=== PATIENT | female | born 1985 | race Two or more races ===

== ENCOUNTER 2025-04-13 13:41 | Outpatient (AMB) | payer MEDICAID, SELFPAY ==
--- NOTE | 2025-04-13 13:45 | A.OFFVIS_ITS ---
Vital Signs 04/13/25 14:13 Height 5 ft 1.5 in Weight 180 lb BMI 33.5 BP 130/80 Blood Pressure Location Rt brachial Position Sitting Pulse 94 Pulse Source Pulse Oximeter Pulse Oximetry (%) 97 Oxygen Delivery Method Room Air Intake Visit Reasons: arthralgia Intake Note: patient presents today for arthralgia. Accompanied by: Daughter Allergies No Known Allergies Allergy (Verified 04/13/25 14:14) HPI HPI arthralgia: Details: Swedish speaking. Daughter interprets. She completed PT for management of shoulder and neck pain. She is compliant with exercises daily. She has had increased pain involving her upper back and neck. Daughter massages shoulders. She takes tyelnol 1000mg PRN pain. [facility] Medical History (Updated 04/13/25 @ 15:48 by Rodrigo Willett MD) Asthma Hypertension Epilepsy Depression Rotator cuff tendonitis Lumbar spondylolysis longterm (current) use of non-steroidal anti-inflammatories (nsaid) Fibromyalgia Chondromalacia of knee Carpal tunnel syndrome, bilateral Arthralgia Family History (Updated 04/13/25 @ 14:29 by Sylvia Eckert CMA) Mother Heart disease Osteoporosis Father Heart disease Social History (Updated 04/13/25 @ 14:29 by Sylvia Eckert CMA) Household Members: Spouse and Children Alcohol intake: never Patient Tobacco Use Status: Never used Tobacco Physical Exam Vital Signs: Last Vital Signs Pulse 94 04/13/25 14:13 BP 130/80 04/13/25 14:13 Pulse Ox 97 04/13/25 14:13 Oxygen Delivery Method Room Air 04/13/25 14:13 BMI result Body Mass Index 33.5 Const Other: General: Comfortable Skin: No lesions seen MSK: Tender to palpate bilateral shoulders, trapezius, cervical paraspinal muscles. She has tenderness of mid thoracic spinous process to lower thoracic spinous process. She also has tenderness of paraspinal muscles of thoracic spine. Normal range of motion of cervical spinous process. Shoulder abduction 90 degrees actively with normal internal rotation. Full external rotation of bilateral shoulders is limited. Bilateral Shoulder abduction to 160 degrees with pain passively. Assessment & Plan Assessment & Plan (1) Myofascial neck pain: Comment: She completed PT June 2024. Code(s): M54.2 - Cervicalgia Category: Medical Plan: Continue PT exercises daily Apply heat to back twice a day Start cyclobenzaprine 5 mg q.h.s. PRN. We discussed side effects and benefits. Continue Tylenol 1000 mg prn pain Try lidocaine patch applied to affected area daily Return to clinic in 3 months Medications: New lidocaine 5% leave on most painful area for up to 12 hrs 1 patch topical DAILY 30 ea 2RF cyclobenzaprine 5 mg PO BEDTIME PRN 30 tabs 1RF muscle pain Coding Level of Care Code Est Pt Level 3 (58620) Complex EM visit Add On G2211 Diagnoses Myofascial neck pain M54.2
[2025-04-13 14:13] VITALS: BP 130/80; PULSE 94; O2SAT 97; BMI 33.5
--- OUTSIDE RECORDS SUMMARY | 2025-04-13 14:53 | XMS_ITS | Clinical Summary ---
Author Organization [facility] Address [address] [place] [address] Care Team Providers Care Earth Science Faculty Member Name Role Phone Unavailable Primary Care Provider Unavailabl e Encounters Date Type Department Care Team Description 04/13/2025 Population Health Risk Score [facility] (C3) Department [address] [address] [place] [address] Provider, Population Health Generic from Last 3 Months Social History Tobacco Use Types Packs/Day Years Used Date Smoking Tobacco: Never Assessed Comments Unknown Sex and Gender Information Value Date Recorded Sex Assigned at Not on file Legal Sex Female 9:31 PM EDT Gender Identity Not on file Sexual Orientation Not on file Plan of Treatment Health Maintenance Due Date Last Done Comments Depression Screening 1983 HIV Screening 1983 SDOH Screening 1983 Disability Screening 1983 Alcohol/Substance Use Screening 1995 Tobacco Screening 1995 Family Planning (PISQ) 1998 HPV Vaccines (1 - 3-dose series) 1998 Hepatitis C Screening 2001 DTaP/Tdap/Td Vaccines (1 - Tdap) 2002 Hepatitis B Vaccines (1 of 3 - 19+ 3-dose series) 2002 Pap Smear 2004 Cervical Cancer Screening 2013 HPV/Cotest 2013 Mammogram 2023 COVID-19 Vaccine ( - 2023-2 5 season) 2024 Influenza Vaccine (#1) 2025 Zoster Vaccines (1 of 2) 2033 RSV Patients and Pa tients Aged 60 years or older (1 - 1-dose 75+ series) 2058 HIB Vaccines Aged Out No longer eligi ble based on patient's age to complete this topic Hepatitis A Vaccines Aged Out No long er eligible based on patient's age to complete this topic IPV Vaccines Aged Out No longer eligi ble based on patient's age to complete this topic Meningococcal B Vaccine Aged Out No l onger eligible based on patient's age to complete this topic Meningococcal Vaccine Aged Out No sean marium eligible based on patient's age to complete this topic Pneumococcal Vaccine: Pediat rics (0 to 5 Years) and At-Risk Patients (6 to 49) Years Aged Out No longer eligible b ased on patient's age to complete this topic RSV under 20 months Aged Out No longe r eligible based on patient's age to complete this topic Rotavirus Vaccines Aged Out No longer eligible based on patient's age to complete this topic
== END 2025-04-13 15:04 | disposition home or self-care (01) ==
PROVIDERS: Visit Provider Internal Medicine Rheumatology
DX: M54.2 Cervicalgia (principal)
CPT/HCPCS: 99213

== ENCOUNTER → 2025-04-13 13:41 | Outpatient (BNVA) | payer MEDICAID, SELFPAY | PROVIDERS: Visit Provider Internal Medicine Rheumatology | DX: M54.2 Cervicalgia (principal) | CPT/HCPCS: 99212 ==

== ENCOUNTER 2025-07-22 14:10 | Outpatient (AMB) | payer MEDICAID, SELFPAY ==
[2025-07-22 14:23] VITALS: BP 110/80; PULSE 67; O2SAT 98; BMI 32.7
--- NOTE | 2025-07-22 14:23 | MHC.OFFVIS ---
Vital Signs 07/22/25 14:23 Height 5 ft 1.5 in Weight 175 lb 11.335 oz BMI 32.7 BP 110/80 Blood Pressure Location Rt brachial Position Sitting Pulse 67 Pulse Source Pulse Oximeter Pulse Oximetry (%) 98 Oxygen Delivery Method Room Air Intake Visit Reasons: 3 months Intake Note: patient presents today for arthralgia. Accompanied by: Self / Same As Patient Allergies No Known Allergies Allergy (Verified 07/22/25 14:29) HPI HPI 3 months: Details: Bengali speaking. Daughter interprets. Pain is still persistent in neck and right shoulder. She continues home exercise program from PT. She fell a month ago. She has been experiencing knee pain since the fall. She had an evaluation by PCP but did not receive any intervention. She has been taking Tylenol 2 tablets daily with some benefit. She uses lidocaine patch on her neck with relief. Her neck pain has improved since last visit. She was using cyclobenzaprine with benefit. Acute on chronic pain in lower back worse in the last 3 days. [facility] Medical History Asthma Hypertension Epilepsy Depression Rotator cuff tendonitis Lumbar spondylolysis [facility] (current) use of non-steroidal anti-inflammatories (nsaid) Fibromyalgia Chondromalacia of knee Carpal tunnel syndrome, bilateral Arthralgia Family History Mother Heart disease Osteoporosis Father Heart disease Social History Household Members: Spouse and Children Alcohol intake: never Patient Tobacco Use Status: Never used Tobacco Physical Exam Vital Signs: Last Vital Signs Pulse 67 07/22/25 14:23 BP 110/80 07/22/25 14:23 Pulse Ox 98 07/22/25 14:23 Oxygen Delivery Method Room Air 07/22/25 14:23 BMI result Body Mass Index 32.7 Const Other: General: Comfortable Skin: No lesions seen MSK: Tender to palpate bilateral shoulders, cervical paraspinal muscles and cervical spinous process. She has tenderness of lower lumbar paraspinal muscles. Normal range of motion of cervical spinous process. Right shoulder abduction 90 degrees actively with limited internal and external rotation. Left shoulder range of motion is full. Tender bilateral knees along joint line. No new effusion. Knee flexion is limited to 30 degrees right side and 45 degrees left side. Assessment & Plan Assessment & Plan (1) Chronic knee pain: Comment: Bilateral knee pain occurred after fall. Pain is uncontrolled limiting range of motion. Discussed conservative management. Code(s): M25.569 - Pain in unspecified knee; G89.29 - Other chronic pain Category: Medical Plan: Start NSAID meloxicam 15 mg daily. I have ordered labs for baseline prior to starting NSAID Continue to use Tylenol 1000 mg. Increased frequency to 1000 mg Q 8 hourly PRN pain Continue to use lidocaine patch as needed to affected area Apply ice to affected area daily X-ray bilateral knees ordered After x-ray results are reviewed, we will consider ordering physical therapy Return to clinic in 3-4 months (2) Chronic right shoulder pain: Code(s): M25.511 - Pain in right shoulder; G89.29 - Other chronic pain Category: Medical Plan: X-ray ordered Labs prior to starting NSAID ordered. Start meloxicam 15 mg daily After x-ray results are reviewed, I will consider physical therapy Continue to use Tylenol 1000 mg. She can increase frequency to Tylenol 1000 mg Q 8 hourly PRN pain Try lidocaine patch applied to affected area as needed Apply heat to affected area daily Return to clinic in 3-4 months Orders: Orders Alanine Aminotransferase 07/22/25 Z79.1 - intermediate manager (current) use of non-steroidal anti-inflammatories (NSAID) Aspartate Amino Transferase 07/22/25 Z79.1 - intermediate manager (current) use of non-steroidal anti-inflammatories (NSAID) Complete Blood Count Auto Diff 07/22/25 Z79.1 - intermediate manager (current) use of non-steroidal anti-inflammatories (NSAID) XR Knee Grey 3V 07/22/25 G89.29 - Other chronic pain, M25.569 - Pain in unspecified knee Creatinine 07/22/25 Z79.1 - intermediate manager (current) use of non-steroidal anti-inflammatories (NSAID) XR shoulder RT min 2V 07/22/25 G89.29 - Other chronic pain, M25.511 - Pain in right shoulder Medications: New meloxicam 15 mg PO DAILY 30 tabs 2RF Discontinued cyclobenzaprine Discontinued Reason: Doctor's Order 5 mg PO BEDTIME PRN 30 tabs 1RF muscle pain Coding Level of Care Code Est Pt Level 4 (67657) Complex EM visit Add On G2211 Diagnoses Chronic knee pain M25.569; G89.29 Chronic right shoulder pain M25.511; G89.29
--- OUTSIDE RECORDS SUMMARY | 2025-07-22 17:14 | XMS_ITS | Clinical Summary ---
Author Organization [employer] Address [address] [place] [address] Care Team Providers Care Anthropology Department Chair Name Role Phone Unavailable Primary Care Provider Unavailabl e Social History Tobacco Use Types Packs/Day Years Used Date Smoking Tobacco: Never Assessed Comments Unknown Sex and Gender Information Value Date Recorded Sex Assigned at Not on file Legal Sex Female 9:31 PM EDT Gender Identity Not on file Sexual Orientation Not on file Plan of Treatment Health Maintenance Due Date Last Done Comments Depression Screening 1983 Lipid Panel 1983 SDOH Screening 1983 Disability Screening 1983 Alcohol/Substance Use Screening 1995 Tobacco Screening 1995 Family Planning (PISQ) 1998 HPV Vaccines (1 - 3-dose series) 1998 Hepatitis C Screening 2001 Hepatitis A Vaccines (1 of 2 - Risk 2-dose series) 2002 Pap Smear 2004 Cervical Cancer Screening 2013 HPV/Cotest 2013 Mammogram 2023 DTaP/Tdap/Td Vaccines (4 - Td or Tdap) 03/02/2030 03/02/2020, 04/25/2017, 10/09/2016 Zoster Vaccines (1 of 2) 2033 RSV Patients and Patients Aged 60 years or older (1 - 1-dose 75+ series) 2058 HIV Screening Completed 04/23/2016 Hepatitis B Vaccines Completed 10/04/2017, 06/25/2017, 04/25/2017 Pneumococcal Vaccine: Pediatrics (0 to 5 Years) and At-Risk Patients (6 to 49) Years Completed 05/29/2024, 04/25/2017 COVID-19 Vaccine Completed 06/22/2025, , 10/26/2021, Additional history exists Influenza Vaccine Completed 06/22/2025, , 09/05/2022, Additional history exists HIB Vaccines Aged Out No longer eligi [...]
== END 2025-07-22 14:57 | disposition home or self-care (01) ==
LOC: HO.RHES 14:11
PROVIDERS: Visit Provider Internal Medicine Rheumatology
DX: M25.569 Pain in unspecified knee (principal); G89.29 Other chronic pain; M25.511 Pain in right shoulder
CPT/HCPCS: 99214

== ENCOUNTER 2025-07-22 14:10 | Outpatient (REF) | payer MEDICAID, SELFPAY ==
[2025-07-22 17:33] LABS: MANUAL DIFF FLAG NO
[2025-07-22 17:52] LABS: Hematocrit 38.6 % (37.0-47.0); Hemoglobin 11.6 g/dl (12.0-16.0); Imm Gran Abs Auto 0.03 X10*3/uL (0.00-0.03); Imm Gran Pct Auto 0.4 % (0.0-0.4); Lymphocytes Absolute Auto 2.4 X10*3/uL (1.2-4.9); Mean Corpuscular HGB Conc 30.1 g/dl (31.0-35.0); Mean Corpuscular Hemoglobin 24.1 pg (27.0-33.0); Mean Corpuscular Volume 80.2 fL (80.0-98.0); NRBC Abs Auto 0.000 X10*3/uL (0.0-0.012); NRBC Pct Auto 0.0 /100WBC (0.0-0.2); Platelet Count 293 X10*3/uL (160-400); Red Blood Count 4.81 X10*6/uL (4.20-5.50); White Blood Count 8.3 X10*3/uL (4.8-10.8)
[2025-07-22 18:08] LABS: Alanine Aminotransferase 20 U/L (0-31); Aspartate Amino Transferase 25 U/L (5-31); Estimated Glomerular Filt Rate > 60
== END 2025-07-22 14:11 | disposition home or self-care (01) ==
LOC: HO.HKASLDS 14:10
PROVIDERS: Visit Provider Internal Medicine Rheumatology
DX: M25.562 Pain in left knee (principal); M25.561 Pain in right knee; M25.511 Pain in right shoulder; G89.29 Other chronic pain; Z79.1 Long term (current) use of non-steroidal anti-inflammatories (NSAID); Z79.899 Other long term (current) drug therapy
CPT/HCPCS: 36415; 82565; 84450; 84460; 85025; 99212

== ENCOUNTER 2025-07-29 15:16 | Outpatient (REF) | payer MEDICAID, SELFPAY ==
--- NOTE | ~2025-07-29 | XR_ITS ---
EXAMINATION: XR SHOULDER, RIGHT CLINICAL INFORMATION: M25.511 - Pain in right shoulder COMPARISON: None available. TECHNIQUE: AP external rotation, Grashey, scapular Y, and axillary views of the right shoulder. FINDINGS: AC and glenohumeral joints are not degenerated. There is no AC joint separation or shoulder dislocation. There is no soft tissue calcification. XR/XR shoulder RT min 2V IMPRESSION: Unremarkable right shoulder Electronically signed by: Daniel Adams MD 07/29/2025 03:50 PM CARYN ZUNIGA
--- NOTE | ~2025-07-29 | XR_ITS ---
Exam: X-ray, bilateral knees.XR KNEE 3 VIEWS BILATERAL TECHNIQUE: Three views lower extremity joint, bilateral knees INDICATION: chronic knee pain COMPARISON: None available. FINDINGS: RIGHT KNEE: There is no joint effusion. Joint spaces are preserved. Intercondylar tubercles are minimally peaked. LEFT KNEE: There is a small amount of fluid in suprapatellar pouch. There is subtle narrowing of medial lateral joint spaces. Intercondylar tubercles are minimally peaked. Small marginal osteophyte is present involving medial trochlea. XR/XR Knee Grey 3V IMPRESSION: Right knee: Unremarkable Left knee: Very minimal degenerative change. Electronically signed by: Daniel Adams MD 07/29/2025 03:48 PM EST
--- OUTSIDE RECORDS SUMMARY | 2025-07-29 18:15 | XMS_ITS | Clinical Summary ---
Author Organization [employer] Address [address] [place] [address] Care Team Providers Care Java J2Ee Architect Name Role Phone Unavailable Primary Care Provider [...]
== END 2025-07-29 15:17 | disposition home or self-care (01) ==
LOC: HO.XRAY 15:16
PROVIDERS: Visit Provider Internal Medicine Rheumatology
DX: M25.511 Pain in right shoulder (principal); M25.562 Pain in left knee; M25.561 Pain in right knee; G89.29 Other chronic pain
CPT/HCPCS: 73030; 73562

== ENCOUNTER → 2025-07-29 15:20 | Outpatient (BNV) | payer MEDICAID, SELFPAY | PROVIDERS: Visit Provider Radiology Diagnostic Radiology | DX: M25.562 Pain in left knee (principal); M25.511 Pain in right shoulder; M25.561 Pain in right knee | CPT/HCPCS: 73030; 73562 ==